=== PATIENT | female | born 1955 | race Caucasian/White ===

== ENCOUNTER 2017-04-01 11:28 | Inpatient (IN) | payer MEDICARE, MEDICAID ==
[~2017-04-01] VITALS: Ht 167.6 cm; Wt 51.2 kg
[~2017-04-01 11:28] MED LIST: BUSP10TA23 PO; DIVA500T52 PO; DIVA500T69 PO; DULO20CA30 PO; GABA-531 PO; PANT40TA25 PO; QUET200T PO; QUET200T29 PO; QUET25TA PO; QUET25TA34 PO
[2017-04-01 11:43] LABS: GLUCOSE,POINT OF CARE 132 MG/DL (70-110)
[2017-04-01] MEDS ORDERED: DIVA125T PO (12:06)
[2017-04-01] MEDS ORDERED: ADV250 IH (12:06)
[2017-04-01] MEDS ORDERED: LITH300C3 PO (12:06)
[2017-04-01 12:57] LABS: EOSINOPHILS % (AUTO) 0 % (1.0-6.0); HEMATOCRIT 44.5 % (36-46); HEMOGLOBIN 14.4 g/dL (12.0-16.0); LYMPHOCYTES # (AUTO) 0.4 K/uL (1.0-4.8); LYMPHOCYTES % (AUTO) 2.2 % (22.0-44.0); MEAN CORPUSCULAR HEMOGLOBIN 30.6 pg (26.0-34.0); MEAN CORPUSCULAR HGB CONC 32.4 G/dL (31.0-37.0); MEAN CORPUSCULAR VOLUME 94 fL (80-100); MONOCYTES # (AUTO) 1.8 K/uL (0.1-1.0); PLATELET COUNT (AUTO) 208 K/uL (150-450); RED BLOOD CELL COUNT(AUTO) 4.71 MIL/uL (4.00-5.20); RED CELL DISTRIBUTION WIDTH 15.5 % (11.5-14.5); WHITE BLOOD COUNT (AUTO) 20.2 K/uL (4.5-11.0)
[2017-04-01 13:00] LABS: NEUTROPHILS % (AUTO) 88.9 % (40.0-70.0); RBC MORPHOLOGY COMMENT NORMAL RBC MORPH
[2017-04-01 13:03] LABS: ADD UA MICROSCOPIC YES; APPEARANCE,URINE TURBID (CLEAR); GLUCOSE, URINE (UA) NEGATIVE (NEGATIVE); KETONES,URINE NEGATIVE (NEGATIVE); LEUKOCYTE ESTERASE ,URINE LARGE (NEGATIVE); OCCULT BLOOD,URINE MODERATE (NEGATIVE); PH,URINE 6.5 (5.0-8.0); PROTEIN,URINE SEE CONFIRM (NEGATIVE)
[2017-04-01 13:05] LABS: ANION GAP 5 mmol/L (8-16); CALCIUM, TOTAL 8.6 mg/dL (8.8-10.5); CARBON DIOXIDE 38 mmol/L (22-29); CHLORIDE 93 mmol/L (98-107); CREATININE 0.65 mg/dL (0.60-1.30); GLOMERULAR FILTR. RATE CALC > 60 mL/min (>60); POTASSIUM 3.3 mmol/L (3.5-5.1); SODIUM SERUM 136 mmol/L (136-145); UREA NITROGEN, BLOOD 10 mg/dL (7-18)
[2017-04-01 13:05] LABS: SULFOSALICYLIC ACID,URINE 2+ (Negative)
[2017-04-01 13:07] LABS: SQUAMOUS EPITHELIAL CELL,UR Few /LPF (None Seen); WBC,URINE >100 /HPF (0-5)
[2017-04-01 13:12] LABS: ALANINE AMINOTRANSFERASE 8 U/L (12-78); ALBUMIN 2.4 g/dL (3.4-5.0); ASPARTATE AMINOTRANSFERASE 12 U/L (15-37); BILIRUBIN,TOTAL 0.5 mg/dL (0.1-1.0); CREATINE KINASE, TOTAL 14 U/L (26-192); TOTAL PROTEIN, SERUM 6.4 g/dL (6.4-8.2)
[2017-04-01 13:15] LABS: INR 1.2 (0.9-1.1); PROTHROMBIN TIME 12.7 SEC (9.4-11.6)
[2017-04-01] MEDS ORDERED: PIPERACILLIN/TAZO 3.375 GM/D5W 50 ML IV ONE (13:45)
[2017-04-01] MEDS ORDERED: SODIUM CHLORIDE 0.9% 1,000 ML IV ONE (13:45)
[2017-04-01] MEDS ORDERED: ACETAMINOPHEN 1000 MG/ISO-OSM 100 ML IV ONE (14:00)
[2017-04-01] MEDS ORDERED: ACETAMINOPHEN 325 MG TABLET PO ONE (14:00)
[2017-04-01] MEDS ORDERED: BISACODYL 10 MG RECTAL RECTAL SUPPOSITORY PR PRN (14:15)
[2017-04-01] MEDS ORDERED: ONDANSETRON HCL 4 MG/2 ML VIAL IVP PRN (14:15)
[2017-04-01] MEDS ORDERED: OxyCODONE HCL/ACETAMINOPHEN 5-325 MG TABLET PO PRN (14:15)
[2017-04-01] MEDS ORDERED: SODIUM CHLORIDE 0.45% 1,000 ML IV SCH (14:15)
[2017-04-01] MEDS ORDERED: ALBUTEROL SULFATE 2.5 MG/0.5 ML NEB SOLUTION NEB PRN (14:15)
[2017-04-01] MEDS ORDERED: ACETAMINOPHEN 325 MG TABLET PO PRN (14:15)
[2017-04-01] MEDS ORDERED: MAGNESIUM HYDROXIDE SUSPENSION 30 ML UDCUP PO PRN (14:15)
[2017-04-01] MEDS ORDERED: POTASSIUM CHLORIDE 20 MEQ ER TABLET PO PRN (14:30)
[2017-04-01] MEDS ORDERED: POTASSIUM CHL 10 MEQ/WATER 50 ML IV PRN (14:30)
[2017-04-01] MEDS: CefTRIAXone 1 GM/DEXTROSE 50 ML IV SCH (14:58)
[2017-04-01 15:46] VITALS: BP 105/55
[2017-04-01] MEDS ORDERED: HEPARIN SODIUM,PORCINE 5,000 UNITS/ML VIAL SQ SCH (16:00)
[2017-04-01 20:00] VITALS: BP 143/78
[2017-04-01] MEDS: HEPARIN SODIUM,PORCINE 5,000 UNITS/ML VIAL SQ SCH (20:10)
[2017-04-01] MEDS: DOCUSATE SODIUM 100 MG CAPSULE PO SCH (20:10)
[2017-04-01 23:18] VITALS: BP 125/88
[2017-04-02 04:28] VITALS: BP 105/74
[2017-04-02 07:45] VITALS: BP 128/78
[2017-04-02 07:56] LABS: HEMATOCRIT 40.7 % (36-46); HEMOGLOBIN 13.3 g/dL (12.0-16.0); MEAN CORPUSCULAR HEMOGLOBIN 31.1 pg (26.0-34.0); MEAN CORPUSCULAR HGB CONC 32.6 G/dL (31.0-37.0); MEAN CORPUSCULAR VOLUME 95 fL (80-100); PLATELET COUNT (AUTO) 198 K/uL (150-450); RED BLOOD CELL COUNT(AUTO) 4.28 MIL/uL (4.00-5.20); RED CELL DISTRIBUTION WIDTH 15.7 % (11.5-14.5); WHITE BLOOD COUNT (AUTO) 23.8 K/uL (4.5-11.0)
[2017-04-02 08:20] LABS: ALANINE AMINOTRANSFERASE 10 U/L (12-78); ANION GAP 6 mmol/L (8-16); ASPARTATE AMINOTRANSFERASE 11 U/L (15-37); BILIRUBIN,TOTAL 0.4 mg/dL (0.1-1.0); CALCIUM, TOTAL 8.3 mg/dL (8.8-10.5); CARBON DIOXIDE 35 mmol/L (22-29); CHLORIDE 100 mmol/L (98-107); CREATININE 0.51 mg/dL (0.60-1.30); GLOMERULAR FILTR. RATE CALC > 60 mL/min (>60); POTASSIUM 3.4 mmol/L (3.5-5.1); SODIUM SERUM 141 mmol/L (136-145); TOTAL PROTEIN, SERUM 5.8 g/dL (6.4-8.2); UREA NITROGEN, BLOOD 8 mg/dL (7-18)
[2017-04-02] MEDS ORDERED: PANTOPRAZOLE SODIUM 40 MG DR TABLET PO SCH (09:00)
[2017-04-02] MEDS: DOCUSATE SODIUM 100 MG CAPSULE PO SCH (09:17)
[2017-04-02] MEDS: HEPARIN SODIUM,PORCINE 5,000 UNITS/ML VIAL SQ SCH (09:18)
[2017-04-02 11:31] LABS: BAND NEUTROPHILS % (MANUAL) 64 % (1-5); LYMPHOCYTES % (MANUAL) 3 % (22-44); TOTAL CELLS COUNTED 100
[2017-04-02 11:46] VITALS: BP 119/60
[2017-04-02] MEDS: CefTRIAXone 1 GM/DEXTROSE 50 ML IV SCH (14:02)
== END 2017-04-02 14:39 | disposition short-term general hospital (02) | DRG 871 ==
LOC: EMS 11:30 → 6N 14:32
PROVIDERS: ADMIT Internal Medicine; ATTEND Internal Medicine
DX: A41.9 Sepsis, unspecified organism (principal); E43 Unspecified severe protein-calorie malnutrition; G93.40 Encephalopathy, unspecified; R64 Cachexia; N39.0 Urinary tract infection, site not specified; Z68.1 Body mass index [BMI] 19.9 or less, adult; F03.90 Unspecified dementia, unspecified severity, without behavioral disturbance, psychotic disturbance, mood disturbance, and anxiety; E03.9 Hypothyroidism, unspecified; F20.9 Schizophrenia, unspecified; I25.10 Atherosclerotic heart disease of native coronary artery without angina pectoris; J44.9 Chronic obstructive pulmonary disease, unspecified; M10.9 Gout, unspecified; R62.7 Adult failure to thrive; F17.210 Nicotine dependence, cigarettes, uncomplicated; B96.89 Other specified bacterial agents as the cause of diseases classified elsewhere; F99 Mental disorder, not otherwise specified; G43.909 Migraine, unspecified, not intractable, without status migrainosus; F41.9 Anxiety disorder, unspecified; F32.9 Major depressive disorder, single episode, unspecified; G89.29 Other chronic pain; Z79.899 Other long term (current) drug therapy; Z98.890 Other specified postprocedural states
CPT/HCPCS: 51702; 70450; 82962; 83605; 84132; 87040; 87086; 93005; 96365; 99285; J0131; J0696; J1644; J2543; J3480; J7030

== ENCOUNTER 2018-02-04 14:13 | Emergency (ER) | payer MEDICARE, MEDICAID ==
[~2018-02-04] VITALS: Ht 165.1 cm; Wt 56.8 kg
[~2018-02-04 14:13] MED LIST changes: +ACET-784 PO; +ADV250 IH; +ASCO500 PO; +ASPI-1192 PO; +ASPI81TA39 PO; +BENZ-51 PO; +BISA10S PR; +BUPR1FIL SL; -BUSP10TA23 PO; +CALC750T4 PO; +DEPAKOTE PO; +DIVA250T45 PO; -DIVA500T52 PO; -DIVA500T69 PO; +FLEET ENEMA RC; +FLUT1BLS IH; +GLUCERNA PO; +LITH300C3 PO; +MELA5TAB3 PO; +METHI5 PO; +MILK OF MAGNESIA PO; +MULT1CAP36 PO; +OLAN2.5T3 PO; +OLAN5TAB2 PO; +ONDA4 PO; +QUET100T PO; -QUET200T PO; -QUET25TA PO; -QUET25TA34 PO; +SENNA PO; +VIST50 PO
[2018-02-04 16:17] LABS: BASOPHILS % (AUTO) 0.6 % (0.0-2.0); HEMATOCRIT 40.7 % (36-46); HEMOGLOBIN 13.5 g/dL (12.0-16.0); LYMPHOCYTES # (AUTO) 1.7 K/uL (1.0-4.8); LYMPHOCYTES % (AUTO) 38.6 % (22.0-44.0); MEAN CORPUSCULAR HEMOGLOBIN 29.1 pg (26.0-34.0); MEAN CORPUSCULAR HGB CONC 33.2 G/dL (31.0-37.0); MEAN CORPUSCULAR VOLUME 88 fL (80-100); MONOCYTES # (AUTO) 0.5 K/uL (0.1-1.0); MONOCYTES % (AUTO) 11.7 % (2.0-9.0); NEUTROPHILS # (AUTO) 2.1 K/uL (1.8-7.7); NEUTROPHILS % (AUTO) 48.1 % (40.0-70.0); PLATELET COUNT (AUTO) 207 K/uL (150-450); RED BLOOD CELL COUNT(AUTO) 4.65 MIL/uL (4.00-5.20); RED CELL DISTRIBUTION WIDTH 16.4 % (11.5-14.5)
[2018-02-04 16:28] LABS: ANION GAP 2 mmol/L (8-16); CALCIUM, TOTAL 8.9 mg/dL (8.8-10.5); CARBON DIOXIDE 34 mmol/L (22-29); CHLORIDE 96 mmol/L (98-107); CREATININE 0.51 mg/dL (0.60-1.30); GLOMERULAR FILTR. RATE CALC > 60 mL/min (>60); GLUCOSE,RANDOM 87 mg/dL (70-110); POTASSIUM 4.3 mmol/L (3.5-5.1); SODIUM SERUM 132 mmol/L (136-145); UREA NITROGEN, BLOOD 11 mg/dL (7-18)
[2018-02-04 16:42] LABS: LITHIUM < 0.20 mmol/L (0.60-1.20)
[2018-02-04 16:43] LABS: ALANINE AMINOTRANSFERASE 14 U/L (12-78); ALBUMIN 3.4 g/dL (3.4-5.0); ALKALINE PHOSPHATASE 73 U/L (46-116); ASPARTATE AMINOTRANSFERASE 22 U/L (15-37); BILIRUBIN,TOTAL 0.5 mg/dL (0.1-1.0); THYROID STIMULATING HORMONE 0.02 uIU/mL (0.36-3.74)
[2018-02-04] MEDS ORDERED: ACET650S27 PR (17:09)
[2018-02-04] MEDS ORDERED: QUET25TA PO ×2 (17:09)
[2018-02-04] MEDS ORDERED: HYDR-4031 PO (17:09)
[2018-02-04] MEDS ORDERED: LORA0.5T2 PO (17:09)
[2018-02-04] MEDS ORDERED: IPRA3AMP4 NEB (17:09)
[2018-02-04] MEDS ORDERED: ATRO10DR PO (17:09)
[2018-02-04] MEDS ORDERED: DULO30CA2 PO (17:09)
[2018-02-04] MEDS ORDERED: QUEtiapine FUMARATE 100 MG TABLET PO ONE (18:15)
[2018-02-04] MEDS ORDERED: MOM30 PO (18:18)
[2018-02-04] MEDS ORDERED: SENN8.6T52 PO (18:18)
[2018-02-04] MEDS ORDERED: NUT.237L28 PO (18:18)
[2018-02-04] MEDS ORDERED: FE PR (18:18)
[2018-02-04] MEDS ORDERED: DiphenhydrAMINE HCL 50 MG/ML VIAL IM ONE (21:15)
[2018-02-04] MEDS ORDERED: ACETAMINOPHEN 500 MG TABLET PO ONE (21:30)
[2018-02-05] MEDS ORDERED: ACETAMINOPHEN 500 MG TABLET PO ONE (09:30)
[2018-02-05] MEDS ORDERED: DiphenhydrAMINE HCL 50 MG/ML VIAL IM ONE (11:45)
[2018-02-05] MEDS ORDERED: QUEtiapine FUMARATE 100 MG TABLET PO ONE (12:00)
[2018-02-05] MEDS ORDERED: KETOROLAC TROMETHAMINE 60 MG/2 ML VIAL IM ONE (12:45)
[2018-02-05 13:09] LABS: AMPHET/METH SCREEN,URINE NEGATIVE (NEGATIVE); BARBITURATE SCREEN, URINE NEGATIVE (NEGATIVE); BENZODIAZEPINES SCREEN,URINE NEGATIVE (NEGATIVE); CANNABINOID SCREEN,URINE NEGATIVE (NEGATIVE); COCAINE SCREEN,URINE NEGATIVE (NEGATIVE); METHADONE SCREEN, URINE NEGATIVE (NEGATIVE); OPIATE SCREEN,URINE NEGATIVE (NEGATIVE)
[2018-02-05 13:12] LABS: PHENCYCLIDINE SCREEN,URINE NEGATIVE (NEGATIVE)
[2018-02-05 13:17] LABS: BILIRUBIN,URINE NEGATIVE (NEGATIVE); GLUCOSE, URINE (UA) NEGATIVE (NEGATIVE); KETONES,URINE TRACE mg/dL (NEGATIVE); LEUKOCYTE ESTERASE ,URINE NEGATIVE (NEGATIVE); NITRATE,URINE NEGATIVE (NEGATIVE); OCCULT BLOOD,URINE NEGATIVE (NEGATIVE); PH,URINE 7.5 (5.0-8.0); PROTEIN,URINE NEGATIVE (NEGATIVE); UROBILINOGEN,URINE 0.2 mg/dL (<=1.0)
[2018-02-05 13:48] LABS: APPEARANCE,URINE HAZY (CLEAR)
[2018-02-05 14:36] VITALS: BP 112/72
== END 2018-02-05 16:00 | disposition home or self-care (01) ==
LOC: EMS 14:16
DX: F41.9 Anxiety disorder, unspecified (principal); F31.9 Bipolar disorder, unspecified; G89.29 Other chronic pain; F11.90 Opioid use, unspecified, uncomplicated; I25.10 Atherosclerotic heart disease of native coronary artery without angina pectoris; J44.9 Chronic obstructive pulmonary disease, unspecified; E03.9 Hypothyroidism, unspecified; G43.909 Migraine, unspecified, not intractable, without status migrainosus; F20.9 Schizophrenia, unspecified; F17.210 Nicotine dependence, cigarettes, uncomplicated; Z76.0 Encounter for issue of repeat prescription
CPT/HCPCS: 36415; 80053; 80178; 80307; 81003; 84443; 85025; 96372; 99284; G0480; J1200 ×2; J1885

== ENCOUNTER → 2018-08-19 | Outpatient (CLI) | payer MEDICARE, OTHER ==
[~2018-08-19] MED LIST changes: -ACET-784 PO; +ACET650S27 PR; -ASCO500 PO; -ASPI81TA39 PO; +ATRO10DR PO; -BENZ-51 PO; -CALC750T4 PO; -DEPAKOTE PO; -DIVA250T45 PO; -DULO20CA30 PO; +DULO30CA2 PO; +FAMO-136 PO; +FE PR; -FLEET ENEMA RC; -FLUT1BLS IH; -GABA-531 PO; -GLUCERNA PO; +HYDR-4031 PO; +IBUP-2070 PO; +IPRA3AMP24 NEB; +LACT30L PO; -LITH300C3 PO; +LORA0.5T2 PO; -MELA5TAB3 PO; -METHI5 PO; -MILK OF MAGNESIA PO; +MIRALAX PO; +MOM30 PO; +NUT.237L28 PO; -OLAN2.5T3 PO; -OLAN5TAB2 PO; -PANT40TA25 PO; -QUET100T PO; -QUET200T29 PO; +QUET25TA PO; +SENN8.6T52 PO; -SENNA PO; +THYR30 PO; +TRAZ-219 PO; +TRIL8 PO; -VIST50 PO
== END | disposition home or self-care (01) ==
LOC: RESP 14:06
PROVIDERS: ATTEND Internal Medicine
DX: J44.1 Chronic obstructive pulmonary disease with (acute) exacerbation (principal); I25.10 Atherosclerotic heart disease of native coronary artery without angina pectoris; I10 Essential (primary) hypertension; M10.9 Gout, unspecified
CPT/HCPCS: 94010; 94726; 94727; 94729

== ENCOUNTER → 2018-09-15 | Outpatient (CLI) | payer MEDICARE, OTHER ==
[~2018-09-15] MED LIST changes: +CYAN500 IM; +DIPH25 PO; +FLUT1BLS3 IH
[2018-09-15 12:06] VITALS: BP 139/79
== END | disposition home or self-care (01) ==
LOC: SRCNTR 11:00
PROVIDERS: ATTEND Internal Medicine
DX: J44.9 Chronic obstructive pulmonary disease, unspecified (principal); J96.10 Chronic respiratory failure, unspecified whether with hypoxia or hypercapnia; F25.9 Schizoaffective disorder, unspecified; F17.200 Nicotine dependence, unspecified, uncomplicated
CPT/HCPCS: G0463

== ENCOUNTER → 2018-12-10 | Outpatient (CLI) | payer MEDICARE, OTHER ==
[~2018-12-10] VITALS: Ht 160 cm; Wt 128.0 kg
[~2018-12-10] MED LIST changes: -HYDR-4031 PO; -LORA0.5T2 PO
[2018-12-10 09:14] VITALS: BP 118/74
== END | disposition home or self-care (01) ==
LOC: SRCNTR 09:03
PROVIDERS: ATTEND Internal Medicine
DX: J44.9 Chronic obstructive pulmonary disease, unspecified (principal); J96.00 Acute respiratory failure, unspecified whether with hypoxia or hypercapnia
CPT/HCPCS: G0463